=== PATIENT | female | born 2000 | race Caucasian/White ===

== ENCOUNTER 2022-02-25 12:29 | Observation (INO) | payer OTHER ==
[~2022-02-25] VITALS: Ht 149.9 cm; Wt 74.8 kg
[2022-02-25 14:34] VITALS: BP 113/64
== END 2022-02-25 14:20 | disposition home or self-care (01) ==
LOC: MLD 12:29
PROVIDERS: ADMIT Obstetrics & Gynecology Obstetrics; ATTEND Obstetrics & Gynecology Obstetrics
DX: O42.912 Preterm premature rupture of membranes, unspecified as to length of time between rupture and onset of labor, second trimester (principal); Z3A.25 25 weeks gestation of pregnancy
CPT/HCPCS: 59025; 81000; G0378

== ENCOUNTER 2022-06-06 11:12 | Inpatient (IN) | payer OTHER ==
[~2022-06-06] VITALS: Ht 149.9 cm; Wt 83.9 kg
[2022-06-06 11:45] VITALS: BP 126/81
[2022-06-06] MEDS ORDERED: METHYLERGONOVINE 0.2 MG/ML AMP IM PRN (11:50)
[2022-06-06] MEDS ORDERED: LACTATED RINGERS 500 ML IV ONE (11:50)
[2022-06-06] MEDS ORDERED: OXYTOCIN 10 UNITS/ML VIAL IM SCH (11:50)
[2022-06-06] MEDS ORDERED: CARBOPROST 250 MCG/ML AMP IM PRN (11:50)
[2022-06-06 12:38] LABS: BASOPHILS % (AUTO) 0.2 % (0.0-2.0); EOSINOPHILS % (AUTO) 0.2 % (0.0-4.0); HEMATOCRIT 36.2 % (36-48); LYMPHOCYTES # (AUTO) 1.1 K/uL (2.5-16.5); LYMPHOCYTES % (AUTO) 13.2 % (20.5-51.1); MEAN CORPUSCULAR HEMOGLOBIN 29 pg (27-31); MEAN CORPUSCULAR HGB CONC 33 g/dL (33-37); MEAN CORPUSCULAR VOLUME 88.5 fL (80-94); MONOCYTES # (AUTO) 0.5 K/uL (0.8-1.0); MONOCYTES % (AUTO) 6.1 % (1.7-9.3); NEUTROPHILS # (AUTO) 6.7 K/uL (1.8-7.7); NEUTROPHILS % (AUTO) 80.3 % (42.2-75.2); PLATELET COUNT (AUTO) 175 K/uL (140-450); RED CELL DISTRIBUTION WIDTH 16.7 % (11.6-13.7); WHITE BLOOD COUNT (AUTO) 8.3 K/uL (4.8-10.8)
[2022-06-06 12:59] LABS: ALBUMIN 2.6 g/dL (3.4-5.0); ANION GAP 13.3 (8-16); CARBON DIOXIDE 22.7 mmol/L (21-32); CREATININE 0.7 mg/dL (0.6-1.3); TOTAL BILIRUBIN 0.1 mg/dL (0.0-1.0)
[2022-06-06 13:37] LABS: PROTHROMBIN TIME 9.3 secs (10.8-13.4)
[2022-06-06] MEDS: LACTATED RINGERS 1,000 ML IV SCH ×2 (13:40→20:48)
[2022-06-06] MEDS: MISOPROSTOL 25 MCG TAB VG SCH ×2 (13:52→19:52)
[2022-06-06 15:48] LABS: APPEARANCE,URINE CLEAR (CLEAR); BILIRUBIN,URINE NEGATIVE (NEGATIVE); BLOOD, URINE NEGATIVE (NEGATIVE); COLOR,URINE YELLOW (YELLOW); NITRITE, URINE NEGATIVE (NEGATIVE); UGLUCOSE NEGATIVE (NEGATIVE)
--- NOTE | 2022-06-06 16:55 | NUR ---
PATIENT HAS BEEN SCREENED AND CATEGORIZED LOW NUTRITION RISK. PATIENT WILL BE SEEN WITHIN 7 DAYS OF ADMISSION. 06/13/22 REVIEWED BY MARGOT JEFF[address]
[2022-06-06 17:07] LABS: LEUKOCYTE ESTERASE ,URINE 2+ (NEGATIVE)
[2022-06-06 17:09] LABS: RBC,URINE NONE SEEN /HPF (0-5); WBC,URINE TOO MANY TO COUNT /HPF (0-5)
[2022-06-07] MEDS: MISOPROSTOL 25 MCG TAB VG SCH ×2 (01:51→08:27)
[2022-06-07] MEDS: LACTATED RINGERS 1,000 ML IV SCH ×4 (05:14→19:43)
[2022-06-07] MEDS ORDERED: OXYTOCIN 20 UNITS in LACTATED RINGERS 1,000 ML IV SCH (13:00)
[2022-06-07] MEDS ORDERED: OXYTOCIN 20 UNITS/LR PREMIX 1,000 ML IV ONE (13:10)
[2022-06-07] MEDS ORDERED: ONDANSETRON 4 MG/2 ML VIAL IVP PRN (14:45)
[2022-06-07] MEDS: MORPHINE SULFATE 10 MG/ML VIAL IVP PRN ×2 (14:58→18:06)
[2022-06-07 18:06] VITALS: BP 137/91
[2022-06-07] MEDS ORDERED: ROPIVACAINE 0.2%/NS PREMIX 200 ML EPI ONE (19:00)
[2022-06-07] MEDS ORDERED: ROPIVACAINE 0.2%/NS PREMIX 100 ML EPI SCH (19:20)
[2022-06-08] MEDS: LACTATED RINGERS 1,000 ML IV SCH ×4 (00:17→16:00)
[2022-06-08] MEDS ORDERED: ROPIVACAINE 0.2%/NS PREMIX 200 ML EPI ONE (07:22)
[2022-06-08] MEDS ORDERED: ROPIVACAINE 0.2%/NS PREMIX 200 ML EPI SCH (07:30)
[2022-06-08] MEDS ORDERED: ceFAZolin 2,000 MG VIAL ONE ×2 (17:33→18:15)
[2022-06-08] MEDS ORDERED: MORPHINE PRES FREE 10 MG/10 ML AMP IV ONE (17:59)
[2022-06-08] MEDS ORDERED: SODIUM BICARBONATE 8.4% PFS 50 MEQ/50 ML SYR IVP ONE (17:59)
[2022-06-08] MEDS ORDERED: LIDOCAINE MPF 2% 100 MG/5 ML VIAL INJ ONE (17:59)
[2022-06-08] MEDS ORDERED: OXYTOCIN 10 UNITS/ML VIAL ONE (18:15)
[2022-06-08] MEDS ORDERED: MORPHINE SULFATE 10 MG/ML SYR ONE (18:15)
[2022-06-08] MEDS ORDERED: ONDANSETRON 4 MG/2 ML VIAL ONE (18:15)
[2022-06-08] MEDS ORDERED: MORPHINE SULFATE 4 MG/ML SYR ONE (18:15)
[2022-06-08] MEDS ORDERED: PROPOFOL 200 MG/20 ML VIAL IV ONE (18:15)
[2022-06-08] MEDS ORDERED: KETOROLAC 30 MG/ML VIAL ONE (18:15)
[2022-06-08] MEDS ORDERED: fentaNYL citrate 0.05 MG/ML - 50mL vial IV ONE (18:15)
[2022-06-08] MEDS ORDERED: fentaNYL citrate 0.05 MG/ML VIAL ONE (18:33)
[2022-06-08] MEDS ORDERED: ONDANSETRON 4 MG/2 ML VIAL IVP PRN (18:40)
[2022-06-08] MEDS ORDERED: NALOXONE 0.4 MG/ML VIAL IVP PRN (18:40)
[2022-06-08] MEDS ORDERED: KETOROLAC 30 MG/ML VIAL IVP PRN (18:40)
[2022-06-08] MEDS ORDERED: diphenhydrAMINE 50 MG/ML VIAL IVP PRN (18:40)
[2022-06-08] MEDS ORDERED: OXYTOCIN 20 UNITS/LR PREMIX 1,000 ML IV SCH (18:50)
[2022-06-08] MEDS ORDERED: HYDROmorphone 1 MG/ML AMP IVP PRN (19:25)
[2022-06-08] MEDS ORDERED: HYDROmorphone PFS 2 MG/ML SYR ONE (19:28)
[2022-06-08] MEDS ORDERED: oxyCODONE/APAP 5/325 MG 1 TAB TAB PO PRN (19:35)
[2022-06-09] MEDS ORDERED: KETOROLAC 30 MG/ML VIAL IVP ONE (02:50)
[2022-06-09] MEDS ORDERED: ACETAMINOPHEN 100 ML IV ONE (02:50)
[2022-06-09] MEDS ORDERED: OXYTOCIN 20 UNITS/LR PREMIX 1,000 ML IV ONE ×2 (03:02→12:00)
[2022-06-09] MEDS: OXYTOCIN 20 UNITS in LACTATED RINGERS 1,000 ML IV SCH ×2 (03:44→12:35)
[2022-06-09 05:45] LABS: HEMATOCRIT 24.2 % (36-48); HEMOGLOBIN 7.9 g/dL (12.0-16.0); MEAN CORPUSCULAR HEMOGLOBIN 29 pg (27-31); MEAN CORPUSCULAR HGB CONC 33 g/dL (33-37); MEAN CORPUSCULAR VOLUME 88.9 fL (80-94); PLATELET COUNT (AUTO) 102 K/uL (140-450); RED BLOOD CELL COUNT(AUTO) 2.73 MIL/uL (4.20-5.40); RED CELL DISTRIBUTION WIDTH 16.5 % (11.6-13.7); WHITE BLOOD COUNT (AUTO) 11.2 K/uL (4.8-10.8)
[2022-06-09 07:08] LABS: LYMPHOCYTES % (MANUAL) 6 % (20-46); MONOCYTES % (MANUAL) 7 % (5-12)
[2022-06-09] MEDS: IBUPROFEN 600 MG TAB PO SCH ×3 (11:28→23:52)
[2022-06-09] MEDS: oxyCODONE/APAP 5/325 MG 1 TAB TAB PO PRN ×2 (12:51→19:17)
[2022-06-09] MEDS: SIMETHICONE 80 MG TAB.CHEW PO PRN (16:43)
[2022-06-10] MEDS: oxyCODONE/APAP 5/325 MG 1 TAB TAB PO PRN ×3 (01:38→18:52)
[2022-06-10 05:28] LABS: HEMOGLOBIN 8.1 g/dL (12.0-16.0)
[2022-06-10] MEDS: IBUPROFEN 600 MG TAB PO SCH ×4 (05:39→22:35)
[2022-06-10] MEDS: SIMETHICONE 80 MG TAB.CHEW PO PRN ×2 (07:39→13:26)
[2022-06-10] MEDS ORDERED: bisacodyL 10 MG SUPP RC SCH (07:50)
[2022-06-11] MEDS: oxyCODONE/APAP 5/325 MG 1 TAB TAB PO PRN ×4 (01:02→18:59)
[2022-06-11] MEDS: IBUPROFEN 600 MG TAB PO SCH ×4 (04:04→22:20)
[2022-06-12] MEDS: oxyCODONE/APAP 5/325 MG 1 TAB TAB PO PRN ×3 (01:20→12:50)
[2022-06-12] MEDS: IBUPROFEN 600 MG TAB PO SCH ×2 (04:20→10:11)
[2022-06-12] MEDS ORDERED: CAMERA MC ONE (05:24)
== END 2022-06-12 13:55 | disposition home or self-care (01) | DRG 540 ==
LOC: MLD 11:12 → OBSVTOIN 11:25 → MFCC 06-08 20:15
PROVIDERS: ADMIT Obstetrics & Gynecology; ATTEND Obstetrics & Gynecology
PROC: 10D00Z1 Extraction of Products of Conception, Low, Open Approach (ICD-10-PCS; principal; 2022-06-08 18:00)
DX: O62.2 Other uterine inertia (principal); O11.4 Pre-existing hypertension with pre-eclampsia, complicating childbirth; D64.9 Anemia, unspecified; O76 Abnormality in fetal heart rate and rhythm complicating labor and delivery; O90.81 Anemia of the puerperium; Z37.0 Single live birth; Z3A.40 40 weeks gestation of pregnancy; Z20.822 Contact with and (suspected) exposure to COVID-19
CPT/HCPCS: 36415; 76815; 80053; 81001; 85018; 85025; 85610; 85730; 86592; 86886; 86900; 86901; 87086; 90715; J0690; J1170; J1885; J2001; J2270; J2405; J2590; J2704; J2795; J3010; J7060; J7120; Q0092

== ENCOUNTER 2023-12-19 11:40 | Observation (INO) | payer MEDICAID, OTHER ==
[~2023-12-19] VITALS: Ht 149.9 cm; Wt 81.6 kg
[2023-12-19] MEDS ORDERED: MORPHINE SULFATE 10 MG/ML VIAL IVP PRN (12:35)
[2023-12-19] MEDS: MORPHINE SULFATE 10 MG/ML VIAL ONE (12:49)
[2023-12-19 13:11] VITALS: BP 116/73; PULSE 104; RESP 18; TEMP 97.7
== END 2023-12-19 14:15 | disposition home or self-care (01) ==
LOC: MLD 11:40
PROVIDERS: ADMIT Obstetrics & Gynecology; ATTEND Obstetrics & Gynecology
DX: O99.891 Other specified diseases and conditions complicating pregnancy (principal); M54.9 Dorsalgia, unspecified; Z3A.00 Weeks of gestation of pregnancy not specified
CPT/HCPCS: G0378; J2270